=== PATIENT | female | born 1980 | race Caucasian/White ===

== ENCOUNTER 2017-05-06 10:32 | Emergency (ER) | payer BC ==
[~2017-05-06] VITALS: Ht 160 cm; Wt 86.2 kg
[2017-05-06 10:32] VITALS: BP 126/80
--- NOTE | 2017-05-06 10:55 | NUR ---
PT PROVIDING URINE AT THIS TIME
[2017-05-06 11:38] LABS: BASOPHILS # (AUTO) 0.1 /CMM (0.0-0.2); BASOPHILS % (AUTO) 0.5 % (0.0-2.0); EOSINOPHILS # (AUTO) 0.2 /CMM (0.0-0.7); EOSINOPHILS % (AUTO) 1.7 % (0.0-6.0); HEMATOCRIT 45 % (33-45); HEMOGLOBIN 14.9 g/dL (11.5-14.8); LYMPHOCYTES # (AUTO) 3.1 /CMM (0.8-4.8); LYMPHOCYTES % (AUTO) 30.2 % (20.0-44.0); MEAN CORPUSCULAR HEMOGLOBIN 31 PG (26.0-33.0); MEAN CORPUSCULAR HGB CONC 34 g/dl (31.0-36.0); MEAN CORPUSCULAR VOLUME 91 fL (82-100); MONOCYTES # (AUTO) 0.5 /CMM (0.1-1.30); MONOCYTES % (AUTO) 4.6 % (2.0-12.0); NEUTROPHILS # (AUTO) 6.2 /CMM (1.8-8.9); PLATELET COUNT (AUTO) 278 /CMM (150-450); RDW COEFFICIENT OF VARIATION 12.2 (11.5-15.0); RED BLOOD CELL COUNT(AUTO) 4.88 MIL/uL (4.0-5.2); WHITE BLOOD COUNT (AUTO) 10.1 K/uL (4.3-11.0)
[2017-05-06 11:57] LABS: APPEARANCE,URINE Clear (CLEAR); BILIRUBIN,URINE Negative (NEGATIVE); BLOOD, URINE Negative Ery/uL (NEGATIVE); COLOR,URINE Yellow (YELLOW); KETONES,URINE Trace (NEGATIVE); LEUKOCYTE ESTERASE ,URINE Negative (NEGATIVE); NITRITE, URINE Negative (NEGATIVE); PROTEIN,URINE Trace mg/dl (NEGATIVE); UGLUCOSE Negative (NEGATIVE); UROBILINOGEN,URINE 0.2 EU/dL (0.2)
[2017-05-06 12:12] LABS: CALCIUM, SERUM 8.9 mg/dL (8.5-10.1); CREATININE 0.8 mg/dL (0.6-1.3); POTASSIUM 4.3 mmol/L (3.5-5.1)
[2017-05-06 12:14] LABS: BACTERIA,URINE Rare /HPF (None Seen); SQUAMOUS EPITHELIAL CELL,UR Rare /HPF (None Seen); WBC,URINE 0-2 /HPF (0-3)
== END 2017-05-06 12:36 | disposition home or self-care (01) ==
LOC: ER 10:35
DX: R10.32 Left lower quadrant pain (principal); Z90.89 Acquired absence of other organs
CPT/HCPCS: 36415; 80048; 81001; 84702; 85025; 99284; A4606; Z7610; 81000-TC

== ENCOUNTER 2025-03-02 20:59 | Emergency (ER) | payer BC, MEDICAID ==
[~2025-03-02] VITALS: Ht 162.6 cm; Wt 74.8 kg
[2025-03-02] MEDS ORDERED: KETOROLAC TROMETHAMINE INJ 30 MG/ML VIAL ONE (22:35)
[2025-03-02] MEDS: KETOROLAC TROMETHAMINE INJ 30 MG/ML VIAL IM ONE (22:39)
[2025-03-03] MEDS ORDERED: GABA-532 PO (01:34)
[2025-03-03] MEDS ORDERED: HYDROMORPHONE 1 MG/1 ML DISP.SYRIN ONE (01:41)
[2025-03-03] MEDS ORDERED: ONDANSETRON 4 MG TAB.RAPDIS ONE (01:41)
[2025-03-03] MEDS: ONDANSETRON 4 MG TAB.RAPDIS PO ONE (01:47)
[2025-03-03] MEDS: HYDROMORPHONE 1 MG/1 ML DISP.SYRIN IM ONE (01:47)
[2025-03-03 01:48] VITALS: BP 128/80; TEMP 98.4; O2SAT 98
== END 2025-03-03 01:48 | disposition home or self-care (01) ==
LOC: ER 21:13
DX: M54.2 Cervicalgia (principal); Z79.899 Other long term (current) drug therapy
CPT/HCPCS: 99285; 72125; 96372 ×2; J1885; Q0162; J1171